=== PATIENT | female | born 1945 | race Caucasian/White ===

== ENCOUNTER 2016-07-23 19:37 | Emergency (ER) | payer MEDICARE ==
[~2016-07-23] VITALS: Ht 157.5 cm; Wt 90.9 kg
[2016-07-23 19:48] VITALS: BP 202/108; PULSE 95; RESP 16; O2SAT 100
--- NOTE | 2016-07-23 20:09 | ED.REPORT ---
HPI-Dental/Mouth Prob Date of Service Jul 23, 2016 ED Provider: Natasha Antonio MD Pt is a 70 y/o healthy female presenting to the ED c/o right upper dental pain onset 2 days ago. She was trying to wait for 3 days to see a dentist but her daughters convinced her to be seen today dud to possible abscess. She has noticed gum swelling around the affected area. Pt denies fever, dysphagia, dyspnea. Nursing Notes Stated Complaint: INFECTED GUM Chief Complaint: Dental Nursing Notes Reviewed: Yes Allergies: Coded Allergies: No Known Allergies (Unverified , 07/23/16) Scheduled Penicillin V Potassium (Penicillin V Potassium) 500 Mg Tablet 500 MG PO QID General Time Seen by MD: 20:04 Chief Complaint Tooth pain Hx Obtained From: Patient Arrived By: Walk-in Onset Occurred: 2 days ago Symptom Duration: Since onset Location: : Tooth upper R molar Quality: Painful Severity: Current: Mild Severity: Maximum: Moderate Past Medical History Past Medical History Denies Past Surgical History None reported Smoking History Unknown if Ever Smoker Social History Other Social History: Good social support Ambulatory Status Independent Review of Systems Constitutional: Denies: Chills, Fever Ears / Nose / Throat: Reports: Toothache Respiratory: Denies: Shortness of breath GI: Denies: Dysphagia Complete sys rev & neg: except as marked. Physical Exam Initial Vital Signs Vital Signs (First) Date Time Temp Pulse Resp B/P Pulse Ox O2 Delivery O2 Flow Rate FiO2 07/23/16 19:48 36.3 95 16 202/108 100 Room Air Initial VS: Reviewed, Vital signs abnormal Head / Eyes: Atraumatic, Normocephalic, PERRL Respiratory: Breath sounds normal, Clear to auscultation, No respiratory distress Cardiovascular: Regular rate & rhythm, Heart sounds normal, Intact distal pulses Abdomen / GI: Soft Extremities: Vascular intact, Neuro intact, No swelling, No tenderness Skin: Warm, Dry, No cyanosis Neurologic: Alert, Oriented, Nonfocal Psychiatric: Mood/affect normal, Behavior normal, Normal thought content ENT: Atraumatic, Airway patent, Mucous membranes moist, Pharynx NL Multiple crowns and some carious teeth. Tooth #2 has some gingival edema but no palpable abscess or fluctuance. The tooth bleeds easily. Neck: Atraumatic, Supple, No meningismus, Full range of motion, No adenopathy Re-Eval/Medical Decision Med Decision/Clinical Course [id number] female with no past medical history here with dental pain. She has soft sublingual and submental spaces. Differential diagnosis includes but is not limited to apical abscess versus cracked tooth versus other dental abscess versus gingivitis. Patient has no evidence of abscess at this time. She has no evidence of Cedric's angina. She was given a dose of penicillin in the emergency department, and discharged with same. She will follow up with her dentist. She is aware and amenable to discharge. Re-Evaluation/Progress : Time of Eval: 20:30 Re-Evaluation/Progress Note: Pt rechecked. Informed pt of plan for treatment. Pt understands and agrees with plan for treatment. F/U instructions and RTER warnings given. All questions addressed. Counseled Regarding: Diagnosis, Need for follow-up, When/why to return to ED Discharge & Departure Primary Impression: Toothache Additional Impression: Hypertension Hypertension type: unspecified secondary hypertension Hypertension goal: unspecified goal Qualified Code: I15.9 - Secondary hypertension, unspecified Disposition: Home Discharge Condition All VS Reviewed: Yes Condition: Stable Additional Instructions: Take 800 mg Ibuprofen every 8 hours as needed for pain. Your physical exam revealed no dental abscess. Take the full course of Penicillin as directed. Go to the dentist as previously planned. Return to the emergency department for trouble breathing, trouble swallowing, high fever, vomiting, severe uncontrolled pain, or other concerning symptoms. Your blood pressure was 202/108 today, please discuss your blood pressure with your primary care doctor. Referrals: [facility] Scribe Attestation Portions of this note were transcribed by Miguel Salinas. I, Dr. Antonio, personally performed the history, physical exam and medical decision-making; I reviewed and confirmed the accuracy of the information in the transcribed note. Signed by Dong Lopez, 07/23/16 - 2029 Natasha Antonio MD Jul 23, 2016 20:09 MIGUEL SALINAS Jul 23, 2016 20:20
[2016-07-23] MEDS ORDERED: PENI500T PO (20:48)
[2016-07-23 20:57] VITALS: PULSE 90; RESP 18; O2SAT 96
== END 2016-07-23 20:58 | disposition home or self-care (01) ==
LOC: SED 19:37
DX: K08.89 Other specified disorders of teeth and supporting structures (principal); I15.9 Secondary hypertension, unspecified